=== PATIENT | male | born 1970 | race Two or more races ===

== ENCOUNTER 2019-08-20 12:04 | Emergency (ER) | payer BC ==
[~2019-08-20] VITALS: Ht 193 cm; Wt 82.0 kg
[2019-08-20 12:18] VITALS: BP 140/80
== END 2019-08-20 13:07 | disposition left against medical advice (07) ==
LOC: ER 12:04
DX: Z53.21 Procedure and treatment not carried out due to patient leaving prior to being seen by health care provider (principal)